=== PATIENT | male | born 2000 | race African-American/Black ===

== ENCOUNTER 2022-05-25 20:10 | Emergency (ER) | payer SELFPAY ==
[~2022-05-25] VITALS: Ht 170.2 cm; Wt 59.4 kg
[2022-05-25 20:20] VITALS: BP 137/65
[2022-05-25] MEDS ORDERED: PREDNISONE 20MG TABLET PO ONE (21:15)
[2022-05-25] MEDS ORDERED: IPRATROPIUM/ALBUTEROL 0.5-3(2.5)MG/3ML NEB HHN ONE (21:15)
[2022-05-25] MEDS ORDERED: ALBU6.7H3 INH (22:17)
[2022-05-25] MEDS ORDERED: P20 PO (22:17)
== END 2022-05-25 22:30 | disposition home or self-care (01) ==
LOC: ER 20:25
DX: J45.901 Unspecified asthma with (acute) exacerbation (principal); R94.31 Abnormal electrocardiogram [ECG] [EKG]
CPT/HCPCS: 93005; 94640; 99283; J7512; Z7610

== ENCOUNTER 2022-05-29 08:16 | Emergency (ER) | payer MEDICAID ==
[~2022-05-29] VITALS: Ht 170.2 cm; Wt 57.0 kg
[~2022-05-29 08:16] MED LIST: ALBU6.7H3 INH; P20 PO
[2022-05-29 08:30] VITALS: BP 118/74
[2022-05-29] MEDS ORDERED: CEPH500C2 MT (08:54)
[2022-05-29] MEDS ORDERED: MUPI1OIN4 TP (08:54)
== END 2022-05-29 09:10 | disposition home or self-care (01) ==
LOC: ER 08:16
DX: L01.00 Impetigo, unspecified (principal); B95.61 Methicillin susceptible Staphylococcus aureus infection as the cause of diseases classified elsewhere; J45.909 Unspecified asthma, uncomplicated; Z79.51 Long term (current) use of inhaled steroids
CPT/HCPCS: 99283

== ENCOUNTER 2022-11-12 18:38 | Emergency (ER) | payer BC, MEDICAID ==
[~2022-11-12] VITALS: Ht 170.2 cm; Wt 56.0 kg
[~2022-11-12 18:38] MED LIST changes: +CEPH500C2 MT; +MUPI1OIN4 TP
[2022-11-12 19:01] VITALS: BP 135/81
[2022-11-12] MEDS ORDERED: CHLO3800 TP (22:02)
== END 2022-11-12 22:20 | disposition home or self-care (01) ==
LOC: ER 18:38
DX: L03.032 Cellulitis of left toe (principal)
CPT/HCPCS: 99281

== ENCOUNTER 2024-11-04 00:22 | Emergency (ER) | payer BC, OTHER ==
[~2024-11-04] VITALS: Ht 170.2 cm; Wt 59.0 kg
[~2024-11-04 00:22] MED LIST changes: +CHLO3800 TP
[2024-11-04 00:23] VITALS: TEMP 36.9
[2024-11-04] MEDS ORDERED: ALBU05 NEB (01:40)
[2024-11-04] MEDS ORDERED: P50 MT (01:40)
[2024-11-04] MEDS ORDERED: ALBU18HF2 IH (01:40)
[2024-11-04] MEDS: PREDNISONE 20MG TABLET PO ONE (01:50)
[2024-11-04] MEDS: ALBUTEROL (0.083%) 2.5MG/3ML NEB HHN ONE (02:08)
[2024-11-04 02:15] VITALS: PULSE 77; RESP 20; O2SAT 95
[2024-11-04 02:30] VITALS: BP 116/68; PULSE 107; RESP 18; O2SAT 99
== END 2024-11-04 02:31 | disposition home or self-care (01) ==
LOC: ER 00:22
DX: J45.901 Unspecified asthma with (acute) exacerbation (principal); Z79.899 Other long term (current) drug therapy; Z98.890 Other specified postprocedural states
CPT/HCPCS: 71045; 94640; 93005; 99283; J7512; Z7610 ×3